=== PATIENT | male | born 1965 | race Caucasian/White ===

== ENCOUNTER 2022-02-13 15:17 | Emergency (ER) | payer OTHER, SELFPAY ==
[2022-02-13 15:32] VITALS: BP 174/95; PULSE 73; RESP 18; TEMP 37; O2SAT 98
--- NOTE | 2022-02-13 16:03 | ED.GENADULT ---
HPI - General Adult General Chief complaint: Ear Stated complaint: rt ear pain History of Present Illness HPI narrative: Mr. Mendez is pleasant 56 y/o male. PMHx GERD, Dyslipidemia. Presents to [facility] today with acute complaints of RT ear ache, worsening in the past 72 hours. Client describes a 'fullness' and 'throbbing' pain type sensation. No hearing loss, falls, or auditory trauma. He endorses 'yellow' ear discharge. No fevers. No GAXIOLA, focal weakness. No sore throat or congestion. No Hx of tympanostomy tubes. He remains w/o additional acute c/o upon PE. Related Data Home Medications Medication Instructions Recorded Confirmed atorvastatin 40 mg tablet 40 mg DAILY 02/13/22 02/13/22 levetiracetam 1,000 mg tablet 1,000 mg PO DAILY 02/13/22 02/13/22 omeprazole 20 mg capsule,delayed 20 mg DAILY 02/13/22 02/13/22 release Allergies Allergy/AdvReac Type Severity Reaction Status Date / Time No Known Allergies Allergy Verified 02/13/22 15:36 Review of Systems Review of Systems: CONSTITUTIONAL: Denies fever, chills, sweats. EYES: Denies visual changes, redness, discharge. ENT: Denies rhinorrhea, congestion, sore throat + RT otalgia. CARDIOVASCULAR: Denies chest pain, palpitations, edema. RESPIRATORY: Denies dyspnea, wheezing, cough GASTROINTESTINAL: Denies abdominal pain, nausea, vomiting, diarrhea. GENITOURINARY: Denies dysuria, hematuria, abnormal discharge SKIN: Denies rash or itching. MUSCULOSKELETAL: Denies acute back pain, joint pain, or myalgia. NEUROLOGIC: Denies numbness, or focal weakness. PSYCHIATRIC: Denies anxiety or depression. Exam Narrative: GENERAL: This is a well-nourished, well-developed adult, in no apparent distress. HEAD: normocephalic. EYES: PERRL. EARS: External ears normal, RT auditory canal is erythematous, positive tragus maneuver. There is mild swelling and yellow discharge to canal. No FB. No bleeding. TM is intact erythematous/bulging. No FB. No vesicular lesions or signs of Leo Castaneda Sx. LT side normal Internal/external PE. No hearing compromise. NOSE: External nose normal. THROAT: Mucous membranes moist, posterior pharynx clear. No exudates. NECK: Neck supple, non-tender without lymphadenopathy, masses or thyromegaly. CARDIOVASCULAR: Regular rate and rhythm. RESPIRATORY: Clear to auscultation. GASTROINTESTINAL: Abdomen soft. SKIN: warm, intact with no suspicious lesions or rash, good texture and turgor. NEURO: Alert, active, and age appropriate. Cranial nerves intact. EXTREMITIES: Negative. Course Course Level of Care: Express Care Visit Vital Signs Vital signs: Vital Signs Temperature 37.0 C 02/13/22 15:32 Pulse Rate 73 02/13/22 15:32 Respiratory Rate 18 02/13/22 15:32 Blood Pressure 174/95 H 02/13/22 15:32 Pulse Oximetry 98 02/13/22 15:32 Oxygen Delivery Room Air 02/13/22 15:32 Temperature 37.0 C 02/13/22 15:32 Pulse Rate 73 02/13/22 15:32 Respiratory Rate 18 02/13/22 15:32 Blood Pressure 174/95 H 02/13/22 15:32 Pulse Oximetry 98 02/13/22 15:32 Oxygen Delivery Room Air 02/13/22 15:32 Medical Decision Making MDM Narrative Medical decision making narrative: -Otitis Media RT, without hearing deficits or trauma. -OP ATB regimen as directed. Dual GTTS/& Oral regimen for dual direct and systemic effects based up significant unilateral irritation on PE. -OTC NSAID/Tylenol alteration prn. -Close PCP F/U 1 WK -ER W/Emergent status changes. Pt agrees. Differential Diagnosis Differential Diagnosis: Differential Diagnosis: Consideration of the following conditions may be warranted for the presenting problem, they are not final diagnoses: upper respiratory infection, otitis media, sinusitis, RSV viral infection, bronchitis, pharyngitis, Streptococcal sore throat, COVID-19, and other. Vital Signs Vital Signs: Vital Signs Temperature 37.0 C 02/13/22 15:32 Pulse Rate 73 02/13/22 15:32
== END 2022-02-13 15:45 | disposition home or self-care (01) ==
PROVIDERS: Emergency Provider Nurse Practitioner Adult Health; PCP Nurse Practitioner Family
DX: H66.91 Otitis media, unspecified, right ear (principal); K21.9 Gastro-esophageal reflux disease without esophagitis; E78.5 Hyperlipidemia, unspecified
CPT/HCPCS: 99213; G0463

== ENCOUNTER 2022-10-20 13:16 | Emergency (ER) | payer OTHER, SELFPAY ==
[2022-10-20 13:24] VITALS: BP 137/58; PULSE 67; RESP 16; TEMP 37; O2SAT 97
[2022-10-20 13:26] VITALS: BP 137/58; PULSE 67; RESP 16; TEMP 37; O2SAT 97
--- NOTE | 2022-10-20 13:46 | ED.EAR ---
HPI - Ear Problem General Chief complaint: Ear Stated complaint: Lt Ear Irritation Time Seen by Provider: 10/20/22 13:37 Source: patient and RN notes reviewed Mode of arrival: ambulatory Limitations: no limitations History of Present Illness HPI Narrative: Patient presents today complaining of clogging his left ear x4 days. Denies pain or drainage. He has been flushing his ear, using ear drops, and an ear candle without relief of symptoms. Denies history of cerumen impactions. Related Data Home Medications Medication Instructions Recorded Confirmed atorvastatin 40 mg tablet 40 mg PO DAILY 02/13/22 10/20/22 levetiracetam 1,000 mg tablet 1,000 mg PO DAILY 02/13/22 10/20/22 omeprazole 20 mg capsule,delayed 20 mg DAILY 02/13/22 10/20/22 release atenolol 25 mg tablet 25 mg PO DAILY 10/20/22 10/20/22 Allergies Allergy/AdvReac Type Severity Reaction Status Date / Time No Known Allergies Allergy Verified 10/20/22 13:24 Review of Systems Review of Systems: CONSTITUTIONAL: Denies body aches, fever, chills, or sweats. EYES: Denies visual changes, redness, or discharge. ENT: Denies rhinorrhea, congestion, sore throat, or otalgia.+ left ear clogging CARDIOVASCULAR: Denies chest pain, palpitations, or edema. RESPIRATORY: Denies cough or dyspnea. GASTROINTESTINAL: Denies abdominal pain, nausea, vomiting, or diarrhea. GENITOURINARY: Denies dysuria or hematuria. SKIN: Denies rash, itching, or wounds. MUSCULOSKELETAL: Denies back pain, joint pain, or myalgia. NEUROLOGIC: Denies headache, numbness, tingling, or weakness. PSYCH: Denies depression or anxiety. PMFSH Comments At time of signature, I have reviewed and agree with nursing past medical, surgical, social and family history unless otherwise noted. Please see nursing chart for further information. There is no relevant family history pertinent to the presenting complaint Exam Narrative: GENERAL: Well-appearing, well-nourished, and in no acute distress. HEAD: Normocephalic, atraumatic. EYES: EOMI. No redness or drainage. Conjunctivae normal. ENT: Mucous membranes pink and moist. Right TM and canal normal. Left canal is slightly edematous with wet white material inside. No movement or tragal tenderness. TM is slightly erythematous, but somewhat occluded by the swelling and white material. NECK: Normal AROM. CHEST: No respiratory distress. EXTREMITIES: Normal range of motion. No edema. SKIN: Warm, dry, no rash. Capillary refill normal. Normal skin turgor. NEURO: No focal deficits. Alert and oriented x3. Gait steady. PSYCH: Normal affect. No signs of depression or anxiety. Course Course Level of Care: Express Care Visit Vital Signs Vital signs: Vital Signs Temperature 98.6 F 10/20/22 13:24 Pulse Rate 67 10/20/22 13:24 Respiratory Rate 16 10/20/22 13:24 Blood Pressure 137/58 L 10/20/22 13:24 Pulse Oximetry 97 10/20/22 13:24 Oxygen Delivery Room Air 10/20/22 13:24 Temperature 98.6 F 10/20/22 13:26 Pulse Rate 67 10/20/22 13:26 Respiratory Rate 16 10/20/22 13:26 Blood Pressure 137/58 L 10/20/22 13:26 Pulse Oximetry 97 10/20/22 13:26 Oxygen Delivery Room Air 10/20/22 13:26 Reviewed. Pt has been instructed to follow up with his PCP regarding his elevated blood pressure today. Medical Decision Making MDM Narrative Medical decision making narrative: Will treat patient for otitis externa with Ciprodex, however, unsure if the erythema of the TM is due to excessive flushing or infection, so will also treat with amoxicillin. Anticipatory guidance given. Differential Diagnosis Differential Diagnosis: Otitis media, otitis externa, ruptured TM, serous otitis, cerumen impaction Vital Signs Vital Signs: Vital Signs Temperature 98.6 F 10/20/22 13:24 Pulse Rate 67 10/20/22 13:24 Respiratory Rate 16 10/20/22 13:24 Blood Pressure 137/58 L 10/20/22 13:24 Pulse Oximetry 97 10/20/22 13:24 Oxy
== END 2022-10-20 13:53 | disposition home or self-care (01) ==
PROVIDERS: Emergency Provider Nurse Practitioner; PCP Family Medicine
DX: H60.502 Unspecified acute noninfective otitis externa, left ear (principal); E78.00 Pure hypercholesterolemia, unspecified; K21.9 Gastro-esophageal reflux disease without esophagitis; Q27.30 Arteriovenous malformation, site unspecified; G40.909 Epilepsy, unspecified, not intractable, without status epilepticus
CPT/HCPCS: 99213; G0463